=== PATIENT | male | born 1960 | race Two or more races ===

== ENCOUNTER 2019-02-18 01:11 | Emergency (ER) | payer OTHER ==
[~2019-02-18] VITALS: Ht 160 cm; Wt 62.1 kg
[2019-02-18] MEDS ORDERED: METFORMIN HCL1000 M1 ORAL (01:22)
[2019-02-18] MEDS ORDERED: ATORVASTATIN CA40 MG ORAL (01:22)
[2019-02-18] MEDS ORDERED: GLIPIZIDE5 MG ORAL (01:22)
[2019-02-18] MEDS ORDERED: Neosporin Oint Ud Pkt TOPIC ONE (01:30)
--- NOTE | 2019-02-18 01:30 | Emergency Room Report ---
History of Present Illness General Chief Complaint: Lower Extremity Injury Source: Patient Present Illness HPI Is a 58-year-old male with no past medical history. He presents with chief complaint of right foot injury at work. He said a forklift hit him in the back of his right foot. This occurred around 7 PM. No other injury. Able to walk on it. Some soreness to that area. No nausea no vomiting. No fever chills. Pain is 6 out of 10. Better with ibuprofen. Allergies: Coded Allergies: No Known Allergies (Unverified , 02/18/19) Patient History Past Medical History: see triage record, old chart reviewed Past Surgical History: none Pertinent Family History: none Social History: Denies: smoking Immunizations: other Reviewed Nursing Documentation: PMH: Agreed; PSxH: Agreed Nursing Documentation-PMH Past Medical History: No History, Except For Hx Diabetes: Yes Review of Systems Eye: Denies: eye pain, blurred vision ENT: Denies: ear pain, nose congestion, throat swelling Respiratory: Denies: cough, shortness of breath Cardiovascular: Denies: chest pain, palpitations Gastrointestinal: Denies: abdominal pain, diarrhea, nausea, vomiting Musculoskeletal: Reports: muscle pain; Denies: back pain, joint pain Skin: Denies: rash Neurological: Denies: headache, numbness Endocrine: Denies: increased thirst, increased urine Hematologic/Lymphatic: Denies: easy bruising All Other Systems: negative except mentioned in HPI Physical Exam Vital Signs Date Time Temp Pulse Resp B/P (MAP) Pulse Ox O2 Delivery O2 Flow Rate FiO2 02/18/19 01:14 97.9 78 14 132/76 (94) 98 Room Air Vitals normal Sp02 EP Interpretation: reviewed, normal General Appearance: well appearing, no apparent distress, alert Head: normocephalic, atraumatic Eyes: bilateral eye PERRL, bilateral eye EOMI ENT: hearing grossly normal, normal pharynx Neck: full range of motion, supple, no meningismus Respiratory: chest non-tender, lungs clear, normal breath sounds Cardiovascular #1: regular rate, rhythm, no murmur Gastrointestinal: normal bowel sounds, non tender, no mass, no organomegaly, no bruit, non-distended Musculoskeletal: back normal, normal range of motion, gait/station normal, tender - Right foot: He has an abrasion and ecchymosis and swelling to the Achilles tendons over the heel area. No deformity. Full range of motion. Pulses normal. Psychiatric: mood/affect normal Medical Decision Making Diagnostic Impression: Primary Impression: Contusion of foot or heel Qualified Codes: S90.31XA - Contusion of right foot, initial encounter Additional Impression: Skin abrasion ER Course Patient presents with soft tissue injury. No fracture dislocation. Will discharge home. Other X-Ray Diagnostic Results Other X-Ray Diagnostic Results : X-Ray ordered: X-rays right foot # of Views/Limited Vs Complete: 3 View Indication: Pain EP Interpretation: Yes Interpretation: no dislocation, no soft tissue swelling, no fractures Impression: No acute disease Electronically Signed by: Connor Conley MD Last Vital Signs Date Time Temp Pulse Resp B/P (MAP) Pulse Ox O2 Delivery O2 Flow Rate FiO2 02/18/19 01:14 97.9 78 14 132/76 (94) 98 Room Air Status: improved Disposition: HOME, SELF-CARE Condition: Stable Scripts Ibuprofen* (MOTRIN*) 600 Mg Tablet 600 MG ORAL THREE TIMES A DAY, #30 TAB 0 Refills Prov: Connor Conley MD 02/18/19 Patient Instructions: Foot Contusion Additional Instructions: Keep wound clean. Follow-up with your doctor in 7 days but return if worse. Connor Conley MD Feb 18, 2019 01:30
[2019-02-18] MEDS ORDERED: IBUPROFEN600 MG ORAL (01:35)
[2019-02-18 01:45] VITALS: BP 132/76
[2019-02-18] MEDS ORDERED: Tetanus/Diptheria/Pertussis IM ONE (01:45)
--- NOTE | 2019-02-18 02:35 | Diagnostic Imaging Report ---
EXAM: XR Right Foot Complete, 3 or More Views CLINICAL HISTORY: TRAUMA TECHNIQUE: Frontal, lateral and oblique views of the right foot. COMPARISON: No relevant prior studies available. FINDINGS: Bones/joints: Unremarkable. No acute fracture. No dislocation. Soft tissues: Unremarkable. No radiopaque foreign body. IMPRESSION: No acute fracture.
== END 2019-02-18 01:45 | disposition home or self-care (01) ==
LOC: EMR 01:37
DX: S90.31XA Contusion of right foot, initial encounter (principal); S90.811A Abrasion, right foot, initial encounter; W22.8XXA Striking against or struck by other objects, initial encounter; Y92.9 Unspecified place or not applicable; Y99.0 Civilian activity done for income or pay; E11.9 Type 2 diabetes mellitus without complications; Z23 Encounter for immunization
CPT/HCPCS: 90471; 90715; 99283